=== PATIENT | male | born 1995 | race Caucasian/White ===

== ENCOUNTER 2022-10-03 12:27 | Day surgery (SDC) | payer OTHER ==
[~2022-10-03] VITALS: Ht 154.9 cm; Wt 61.2 kg
== END 2022-10-05 07:17 | disposition home or self-care (01) ==
LOC: MOR 12:27 → MMU 12:28 → MOR 10-05 07:17
PROVIDERS: ATTEND Internal Medicine Gastroenterology
DX: Z01.818 Encounter for other preprocedural examination (principal)